=== PATIENT | male | born 1955 | race Caucasian/White ===

== ENCOUNTER 2024-05-04 23:41 | Emergency (ER) | payer SELFPAY ==
[~2024-05-04] VITALS: Ht 172.7 cm; Wt 127.0 kg
[2024-05-04 23:47] VITALS: BP 136/81; PULSE 115; RESP 18; TEMP 97.9; O2SAT 94
[2024-05-05] MEDS: MORPHINE SULFATE 4 MG/ML INJ (FOR IV/IM USE) IM ONE (00:25)
[2024-05-05] MEDS: ACETAMINOPHEN 325MG TABLET PO ONE (00:25)
[2024-05-05] MEDS ORDERED: IBUP-2029 MT (02:28)
== END 2024-05-05 02:58 | disposition home or self-care (01) ==
LOC: ER 23:45
DX: S09.90XA Unspecified injury of head, initial encounter (principal); M25.511 Pain in right shoulder; M25.551 Pain in right hip; W01.0XXA Fall on same level from slipping, tripping and stumbling without subsequent striking against object, initial encounter; Y93.89 Activity, other specified; Y92.89 Other specified places as the place of occurrence of the external cause; Y99.8 Other external cause status
CPT/HCPCS: 73502; 73030; 70450; 72125; 99285; 96372; J2270; Z7610